=== PATIENT | female | born 1995 | race African-American/Black ===

== ENCOUNTER 2016-10-24 20:01 | Emergency (ER) | payer OTHER ==
[~2016-10-24 20:01] MED LIST: DEPO-PROVER150 MG/ML INJ; NO MEDICATIONS; SUDAFED PO
== END 2016-10-24 20:54 | disposition home or self-care (01) ==
LOC: SED 20:01
DX: J02.0 Streptococcal pharyngitis (principal); R03.0 Elevated blood-pressure reading, without diagnosis of hypertension; J45.909 Unspecified asthma, uncomplicated
CPT/HCPCS: 87880; 99283

== ENCOUNTER 2017-01-11 19:19 | Emergency (ER) | payer OTHER ==
[~2017-01-11] VITALS: Ht 160 cm; Wt 69.4 kg
== END 2017-01-11 20:09 | disposition home or self-care (01) ==
LOC: SED 19:19
DX: H00.011 Hordeolum externum right upper eyelid (principal); J45.909 Unspecified asthma, uncomplicated
CPT/HCPCS: 99283